=== PATIENT | female | born 1985 | race Two or more races ===

== ENCOUNTER 2018-08-30 18:34 | Emergency (ER) | payer MEDICAID ==
[~2018-08-30] VITALS: Ht 152.4 cm; Wt 88.9 kg
[2018-08-30 18:38] VITALS: Ht 152.4 cm; Wt 88.9 kg
[2018-08-30] MEDS ORDERED: ONDANSETRON 4 MG INJ IV STA (20:29)
[2018-08-30] MEDS ORDERED: morphine 4 MG/ML VIAL IV STA (20:29)
[2018-08-30] MEDS ORDERED: CIPROFLOXACIN 400MG/D5W 200 ML IVPB ONE (23:00)
[2018-08-30] MEDS ORDERED: SOD CHLORIDE 0.9% 1,000 ML IV ONE (23:30)
[2018-08-31] MEDS ORDERED: TAMS-14 PO (00:20)
[2018-08-31] MEDS ORDERED: CIPR500T4 PO (00:20)
[2018-08-31] MEDS ORDERED: NAPR-985 PO (00:20)
[2018-08-31 01:35] VITALS: BP 98/57; PULSE 74; RESP 18
--- NOTE | 2018-08-31 05:57 | ERD ---
ER Documentation Chief Complaint Chief Complaint abdominal pain x4 days HPI 33-year-old female patient with no significant past medical history presents to ED complaining of abdominal pain that started 4 days ago. Patient reports that she had a previous tubal ligation. States that she took Advil for pain relief without any success. Denies any chest pain, shortness of breath, nausea, vomiting, diarrhea, neck stiffness. ROS All systems reviewed and are negative except as per history of present illness. Medications Home Meds Active Scripts Naproxen* (Naprosyn*) 500 Mg Tablet, 500 MG PO BID PRN for PAIN AND/OR INFLAMMATION, #30 TAB Prov:HUYEN OTTO PA-C 08/31/18 Tamsulosin Hcl* (Flomax*) 0.4 Mg Cap.er.24h, 0.4 MG PO QPM, #14 CAP Prov:HUYEN OTTO PA-C 08/31/18 Ciprofloxacin Hcl* (Ciprofloxacin Hcl*) 500 Mg Tablet, 500 MG PO BID for 10 Days, TAB Prov:HUYEN OTTO PA-C 08/31/18 Allergies Allergies: Coded Allergies: No Known Allergy (Unverified , 08/30/18) PMhx/Soc Medical and Surgical Hx: pt denies Medical Hx, pt denies Surgical Hx Hx Alcohol Use: No Hx Substance Use: No Hx Tobacco Use: No Smoking Status: Never smoker Physical Exam Vitals Vital Signs Date Temp Pulse Resp B/P (MAP) Pulse Ox O2 O2 Flow FiO2 Time Delivery Rate 08/31/18 98.7 74 18 98/57 (71) 98 Room Air 01:35 08/30/18 98.3 89 18 128/82 99 18:38 (97) Physical Exam Const: [id number], well-nourished. In no acute distress. Head: Atraumatic, normocephalic Eyes: Normal Conjunctiva without injection. No purulent discharge. ENT: Normal external ear, nose. Moist oropharynx without tonsillar exudates. Non-erythematous pharynx. Uvula midline. No drooling. No trismus. Neck: No cervical midline tenderness. Full range of motion. No meningismus. No cervical lymphadenopathy. No JVD. Resp: Clear to auscultation bilaterally. No wheezing, rhonchi, rales, or crackles. No accessory muscle use. No retractions. Cardio: Regular rate and rhythm. No murmurs, rubs or gallops. Abd: Soft, generalized tenderness to palpation of the abdomen, non distended. No rmal bowel sounds. No palpable masses. No rebound tenderness. No guarding. Negative McBurney's point. Negative psoas sign. Negative obturator sign. Skin: No petechiae or rashes Back: No midline tenderness. No CVA tenderness. Ext: No cyanosis, or edema. Neur: Awake and alert. Normal gait. Normal coordination. Psych: Normal Mood and Affect Results 24 hrs Laboratory Tests Test 08/30/18 20:43 08/30/18 20:52 08/30/18 20:53 POC Beta HCG, Qualitative NEGATIVE White Blood Count 8.9 10^3/ul Red Blood Count 4.87 10^6/ul Hemoglobin 14.6 g/dl Hematocrit 43.0 % Mean Corpuscular Volume 88.3 fl Mean Corpuscular Hemoglobin 30.0 pg Mean Corpuscular 34.0 g/dl Hemoglobin Concent Red Cell Distribution Width 13.2 % Platelet Count 340 10^3/UL Mean Platelet Volume 9.8 fl Immature Granulocytes % 0.300 % Neutrophils % 64.7 % Lymphocytes % 22.9 % Monocytes % 9.5 % Eosinophils % 2.4 % Basophils % 0.2 % Nucleated Red Blood Cells % 0.0 /100WBC Immature Granulocytes # 0.030 10^3/ul Neutrophils # 5.8 10^3/ul Lymphocytes # 2.0 10^3/ul Monocytes # 0.8 10^3/ul Eosinophils # 0.2 10^3/ul Basophils # 0.0 10^3/ul Nucleated Red Blood Cells # 0.0 10^3/ul Urine Color YELLOW Urine Clarity CLEAR Urine pH 7.0 Urine Specific [place] 1.010 Urine Ketones NEGATIVE mg/dL Urine Nitrite NEGATIVE mg/dL Urine Bilirubin NEGATIVE mg/dL Urine Urobilinogen NEGATIVE mg/dL Urine Leukocyte Esterase 3+ Earnestine/ul Urine Microscopic RBC 9 /HPF Urine Microscopic WBC 119 /HPF Urine Squamous Epithelial Cells FEW /HPF Urine Bacteria FEW /HPF Urine Hemoglobin 2+ mg/dL Urine Glucose NEGATIVE mg/dL Urine Total Protein NEGATIVE mg/dl Sodium Level 140 mmol/L Potassium Level 4.0 mmol/L Chloride Level 102 mmol/L Carbon Dioxide Level 26 mmol/L Anion Gap 12 Blood Urea Nitrogen 12 mg/dl Creatinine 0.57 mg/dl Est Glomerular Filtrat Rate mL/min > 60 mL/min Glucose Level 113 mg/dl Calcium Level 9.8 mg/dl Total Bilirubin 0.3 mg/dl Direct Bilirubin 0.00 mg/dl Indirect Bilirubin 0.3 mg/dl Aspartate Amino Transf (AST/SGOT) 101 IU/L Alanine 235 IU/L Aminotransferase (ALT/SGPT) Alkaline Phosphatase 139 IU/L Total Protein 9.4 g/dl Albumin 4.7 g/dl Globulin 4.70 g/dl Albumin/Globulin Ratio 1.00 Lipase 38 U/L Current Medications Medications Dose Sig/Eloisa Start Time Status Last (Trade) Ordered Route PRN Stop Time Admin Dose Reason Admin Morphine 4 mg ONCE STAT 08/30/18 DC 08/30/18 Sulfate IV 20:29 08/30/18 20:56 (morphine) 20:36 Ondansetron 4 mg ONCE STAT 08/30/18 DC 08/30/18 HCl (Zofran IV 20:29 08/30/18 20:56 Inj) 20:36 200 ml @ ONCE ONCE 08/30/18 DC 08/30/18 Ciprofloxacin 200 mls/hr IVPB 23:00 08/30/18 23:06 / Dextrose 23:59 Sodium 1,000 ml @ Q1H ONCE 08/30/18 DC 08/30/18 Chloride 1,000 mls/hr IV 23:30 08/31/18 23:21 00:29 Procedures/MDM 33-year-old female patient with no significant past medical history presents to ED complaining of abdominal pain that started 4 days ago. Patient is afebrile and nontoxic-appearing. Patient was further worked up with CBC, CMP, lipase, UA, T of the abdomen and pelvis without contrast. Patient's pain and symptoms have improved after treatment with 4 mg IV morphine, 4 mg IV Zofran, 1 L of normal saline. CBC: No leukocytosis. No e/o of systemic infection. No e/o anemia. CMP: No e/o severe acidosis, alkalosis, renal failure, diabetic ketoacidosis, transaminitis from fatty liver Lipase within normal limits. Urine: 3+ leukocyte esterase, no nitrites, 2+ hematuria. Urine : negative IMPRESSION: 1. No gross evidence of acute intra-abdominal/pelvic inflammatory process. No evidence of bowel obstruction. The appendix is within normal limits. 2. Punctate 1-2 mm bilateral nonobstructing nephrolithiasis within the lower po les of both kidneys. No evidence of obstructive uropathy. 3. Fatty liver. 4. No evidence of free fluid or free air. No gross focal fluid collections. Patient has nephrolithiasis with urinary tract infection. Low suspicion for septic renal stone. Patient is afebrile and nontoxic-appearing. Low suspicion for ectopic , ovarian torsion, gastritis, GERD, peptic ulcer disease, cholecystitis, choledocholithiasis, cholangitis, pancreatitis, appendicitis, bowel obstruction, ileus, volvulus, nephrolithiasis, pyelonephritis, hepatitis, perforated viscus, diverticulitis, strangulated/incarcerated hernia, DKA, acute abdomen, mesenteric ischemia or other emergent conditions. Diagnosis: UTI, Kidney Stones Discharge medications: Naproxen Follow up with primary care physician in 1-2 days for referral to [facility]. Instructed patient to return to the ED sooner for any worsening symptoms. Patient's questions were answered. Patient understood and agreed with discharge plan. Patient discharged stable. Departure Diagnosis: Primary Impression: Urinary tract infection Urinary tract infection type: site unspecified Hematuria presence: with hematuria Qualified Codes: N39.0 - Urinary tract infection, site not specified; R31.9 - Hematuria, unspecified Additional Impression: Kidney stones Condition: Stable Patient Instructions: Understanding Urinary Tract Infections (UTIs), Understanding Kidney Stones [facility] Usted se montemayor hecho un examen mdico de control que le indica que no est en cece condicin que requiera tratamiento urgente en el Departamento de Emergencia. Un estudio ms profundo y el tratamiento de cross condicin pueden esperar sin ningn riesgo hasta que usted sea atendida/o en el consultorio de cross mdico o cece clnica. Es responsabilidad suya arreglar cece johanne para el seguimiento del sandra. MANEJO DE CONDICIONES NO URGENTES EN EL FUTURO 1) Si usted tiene un mdico de atencin primaria: Usted debera llamar a cross mdico de atencin primaria antes de venir al departamento de emergencia. Despus de las horas de consultorio, cross doctor o cross asociado/a est disponible por telfono. El mdico o enfermero de ata en el servicio telefnico puede asesorarle por amber medio para atender el problema, o sandra contrario se puede programar cece johanne. 2) Si usted no tiene un mdico de atencin primaria: Llame al mdico o clnica de referencia que aparece abajo kalyan las horas de consultorio para hacer cece johanne para que le vean. CLINICAS: [place] [id number] [phone] [facility] [phone] [facility] [phone] [facility]. [place] [id number] [phone] [facility] [place] [address] [phone] [facility] [phone] [address] [facility]. [facility] () Usted se montemayor hecho un examen mdico de control que le indica que no est en cece condicin que requiera tratamiento urgente en el Departamento de Emergencia. Un estudio ms profundo y el tratamiento de cross condicin pueden esperar sin ningn riesgo hasta que usted sea atendida/o en el consultorio de cross mdico o cece clnica. Es responsabilidad suya arreglar cece johanne para el seguimiento del sandra. MANEJO DE CONDICIONES NO URGENTES EN EL FUTURO 1) Si usted tiene un mdico de atencin primaria: Usted debera llamar a cross mdico de atencin primaria antes de venir al departamento de emergencia. Despus de las horas de consultorio, cross doctor o cross asociado/a est disponible por telfono. El mdico o enfermero de ata en el servicio telefnico puede asesorarle por amber medio para atender el problema, o sandra contrario se puede programar cece johanne. 2) Si usted no tiene un mdico de atencin primaria: Llame al mdico o condado institucions de referencia que aparece abajo kalyan las horas de consultorio para hacer cece johanne para que le vean. SI USTED NO PUEDE PAGAR PARA DESMOND UN MEDICO puede ir a: [facility] [address] [place] [address] [facility] [address] [place] [address] [facility] [address] [place] [address] [facility] [address] [place], [place] [id number] Additional Instructions: Llame al doctor MAANA y dominique cece JOHANNE PARA DENTRO DE 2-3 WILKINSON.Dgale a la secretaria que nosotros le instruimos hacer esta johanne.Avise o llame si cross condicin se empeora antes de la johanne. Regresa aqui si peor o no mejor. HUYEN OTTO PA-C Aug 31, 2018 05:57
== END 2018-08-31 01:37 | disposition home or self-care (01) ==
LOC: FTE 18:34
DX: N39.0 Urinary tract infection, site not specified (principal); N20.0 Calculus of kidney
CPT/HCPCS: 36415; 74176; 80053; 81001; 81025; 83690; 85025; 87086; 96374; 96375; J0744; J2270; J2405; J7030; Z7502

== ENCOUNTER 2018-11-13 08:50 | Emergency (ER) | payer MEDICAID ==
[~2018-11-13] VITALS: Ht 152.4 cm; Wt 89.2 kg
[~2018-11-13 08:50] MED LIST: CIPR500T4 PO; NAPR-985 PO; TAMS-14 PO
[2018-11-13 08:54] VITALS: Ht 152.4 cm; Wt 89.2 kg
[2018-11-13] MEDS ORDERED: AMOX500C2 PO (10:41)
[2018-11-13] MEDS ORDERED: IBUP-1542 PO (10:41)
[2018-11-13 12:15] VITALS: BP 107/71; PULSE 86; RESP 18
--- NOTE | 2018-11-29 14:34 | ERD ---
ER Documentation Chief Complaint Chief Complaint sore throat HPI 33-year-old female presents with sore throat for last week. She has had subjective fevers but no fever triage. She denies cough, vomiting, abdominal pain, additional symptoms. ROS All systems reviewed and are negative except as per history of present illness. Medications Home Meds Active Scripts Amoxicillin* (Amoxicillin*) 500 Mg Cap, 500 MG PO TID for 10 Days, CAP Prov:SAPPHIRE AGUIRRE MD 11/13/18 Ibuprofen* (Motrin*) 600 Mg Tab, 600 MG PO Q6, #15 TAB Prov:SAPPHIRE AGUIRRE MD 11/13/18 Naproxen* (Naprosyn*) 500 Mg Tablet, 500 MG PO BID PRN for PAIN AND/OR INFLAMMATION, #30 TAB Prov:HUYEN OTTO PA-C 08/31/18 Tamsulosin Hcl* (Flomax*) 0.4 Mg Cap.er.24h, 0.4 MG PO QPM, #14 CAP Prov:HYUEN OTTO PA-C 08/31/18 Ciprofloxacin Hcl* (Ciprofloxacin Hcl*) 500 Mg Tablet, 500 MG PO BID for 10 Days, TAB Prov:HUYEN OTTO PA-C 08/31/18 Allergies Allergies: Coded Allergies: No Known Allergy (Unverified , 11/13/18) PMhx/Soc Medical and Surgical Hx: pt denies Medical Hx, pt denies Surgical Hx Hx Alcohol Use: No Hx Substance Use: No Hx Tobacco Use: No Smoking Status: Never smoker FmHx Family History: No diabetes, No coronary disease, No other Physical Exam Physical Exam Const: No acute distress Head: Atraumatic Eyes: Normal Conjunctiva ENT: Normal External Ears, Nose and Mouth. TMs normal. Erythema of the posterior oropharynx with 2+ tonsils with uvula midline and airway patent. Neck: Full range of motion. No meningismus. Resp: Clear to auscultation bilaterally Cardio: Regular rate and rhythm, no murmurs Abd: Soft, non tender, non distended. Normal bowel sounds Skin: No petechiae or rashes Back: No midline or flank tenderness Ext: No cyanosis, or edema Neur: Awake and alert Psych: Normal Mood and Affect Procedures/MDM Patient presents with signs and symptoms of acute pharyngitis without signs of abscess, airway obstruction, sepsis.. Given the duration of symptoms we will treat empirically with amoxicillin, ibuprofen, primary care follow-up and return precautions. The patient was stable with no new complaints during the ER course. Clinically, there is no current evidence to suggest meningitis, sepsis, acute abdomen, pneumonia, stroke, acute coronary syndrome, pulmonary embolism, aortic dissection or any other emergent condition appearing to require further evaluation or hospitalization. Patient counseled regarding my diagnostic impression and care plan. Prior to discharge all questions answered. Pt agrees with treatment plan and understands strict return precautions. Pt is instructed to follow up with primary care provider within 24-48 hours. Precautionary instructions provided including instructions to return to the ER if not improving or for any worsening or changing symptoms or concerns. Departure Diagnosis: Primary Impression: Sore throat Condition: Stable Patient Instructions: Pharyngitis, Strep (Presumed) Additional Instructions: Cheque otro vez con cross doctor primario en el proximo stewart or regresa para mas o nueva simptomas. SAPPHIRE AGUIRRE MD Nov 29, 2018 14:34
== END 2018-11-13 12:16 | disposition home or self-care (01) ==
LOC: FTE 08:50
DX: J02.9 Acute pharyngitis, unspecified (principal)
CPT/HCPCS: 99283